=== PATIENT | male | born 1970 | race Hispanic/Latino ===

== ENCOUNTER 2019-09-23 12:45 | Emergency (ER) | payer SELFPAY ==
[~2019-09-23] VITALS: Ht 175.3 cm; Wt 95.3 kg
--- NOTE | 2019-09-23 14:04 | Diagnostic Imaging Report ---
EXAM: SHOULDER RIGHT COMPLETE DATE: 09/23/2019 1:30 PM INDICATION: Fall, right shoulder pain COMPARISON: None FINDINGS: Internal rotation, external rotation, scapular Y views were obtained of the right shoulder. Cortical irregularity identified along the greater tuberosity of the proximal right humerus compatible with a minimally displaced fracture. No other acute fractures or dislocations are appreciated. The humeral head maintains anatomic relationship with the glenoid. The AC joint is unremarkable. No radiopaque foreign bodies appreciated. The visualized right hemithorax is unremarkable. IMPRESSION: Minimally displaced fracture identified of the proximal right humerus as above. Signed by: Dr. Kishore Gonsalves MD on 09/23/2019 2:00 PM
== END 2019-09-23 14:51 | disposition home or self-care (01) ==
LOC: ER 12:45
DX: S42.301A Unspecified fracture of shaft of humerus, right arm, initial encounter for closed fracture (principal); W11.XXXA Fall on and from ladder, initial encounter; Y92.008 Other place in unspecified non-institutional (private) residence as the place of occurrence of the external cause; I10 Essential (primary) hypertension; K21.9 Gastro-esophageal reflux disease without esophagitis
CPT/HCPCS: 99282